=== PATIENT | male | born 1995 | race Caucasian/White ===

== ENCOUNTER 2016-07-19 19:38 | Emergency (ER) | payer BC ==
[~2016-07-19] VITALS: Ht 182.9 cm; Wt 74.6 kg
[~2016-07-19 19:38] MED LIST: ALBUAER2 INH; KFLUNK; OXYC-57 PO; SNGCH5 PO
[2016-07-19 19:47] VITALS: TEMP 36.9; Ht 182.9 cm; Wt 74.6 kg
[2016-07-19] MEDS ORDERED: FLVHFA110 INH (19:56)
[2016-07-19] MEDS ORDERED: PRVHFAIN INH (19:56)
[2016-07-19 20:36] LABS: BASO % 0.3 %; BASO ABS # 0.03 K/uL (0-0.2); COMPLETE YES; EOS % 1.7 %; HEMATOCRIT 38.9 % (42-52); IG% 0.1 %; LYMPH % 27.7 %; LYMPH ABS # 2.57 K/uL (1.2-3.4); MEAN CELL VOLUME 82.4 fL (80-100); MEAN CORPUSCULAR HEMOGLOBIN 29.7 pg (25-34); MEAN PLATELET VOLUME 9.4 fL (7.4-10.4); MONO % 10.1 %; NEUT % 60.1 %; PLATELET COUNT 368 K/uL (130-400); RED BLOOD COUNT 4.72 M/uL (4.7-6.1); WHITE BLOOD COUNT 9.28 K/uL (4.8-10.8)
[2016-07-19 20:56] LABS: BUN/CREATININE RATIO 18.1 (10-20); CALCIUM 9.4 mg/dl (8.5-10.1); CREATININE 1.2 mg/dl (0.60-1.40); MAGNESIUM 2.1 mg/dl (1.8-2.4); POTASSIUM 3.7 mmol/L (3.5-5.1)
--- NOTE | 2016-07-19 21:22 | DIAGNOSTIC IMAGING REPORT ---
RIGHT LOWER EXTREMITY VENOUS DOPPLER HISTORY: Right leg pain/swelling Right COMPARISON STUDY: Right leg venous Doppler 08/05/2010. FINDINGS: There is normal compressibility, flow, and augmentation within the right lower extremity deep venous system. Enlarged right inguinal lymph node measuring 4.0 x 3.2 x 0.9 cm. This contains a normal fatty hilum but a slightly thickened cortex. IMPRESSION: No DVT within the right lower extremity. Enlarged right inguinal lymph node. Electronically signed by: Kash Dewitt M.D. 07/19/2016 9:20 PM Dictated Date/Time: 07/19/2016 9:19 PM
--- NOTE | 2016-07-19 21:32 | DIAGNOSTIC IMAGING REPORT ---
RIGHT TIBIA/FIBULA 2 VIEWS ROUTINE CLINICAL HISTORY: pain - h/o tibial osteotomy Right. Right lower leg pain. COMPARISON STUDY: Right lower leg 08/05/2010. FINDINGS: Old, healed fractures within the proximal shaft of the right tibia and mid shaft of the right fibula consistent with prior osteotomies. Mild skin thickening and soft tissue edema within the anterior and lateral aspect of the proximal right lower leg. No underlying bony destruction to suggest osteomyelitis. No acute fracture or dislocation. IMPRESSION: Mild skin thickening and soft tissue edema within the proximal right lower leg. No underlying bony abnormality to suggest osteomyelitis. Old postoperative changes as described above. Electronically signed by: Kash Dewitt M.D. 07/19/2016 9:30 PM Dictated Date/Time: 07/19/2016 9:28 PM
[2016-07-19 22:27] LABS: URINE APPEARANCE CLEAR (CLEAR); URINE BILIRUBIN NEG (NEG); URINE COLOR YELLOW; URINE NITRITE NEG (NEG); URINE PH 7.5 (4.5-7.5); URINE SPECIFIC GRAVITY 1.023 (1.000-1.030); UROBILINOGEN NEG (NEG); ZZUR CULT IF INDIC CLEAN CATCH NO
[2016-07-19 22:32] LABS: MANUAL MICROSCOPIC REQUIRED? NO; REVIEW REQ? NO
--- NOTE | 2016-07-19 22:40 | EMERGENCY ROOM VISIT NOTE ---
History First contact with patient: 19:50 Chief Complaint: KNEEPAIN Stated Complaint: SWOLLEN R KNEE History of Present Illness The patient is a 20 year old male who presents to the Emergency Department by private vehicle for evaluation of pain and swelling to the RIGHT lower extremity. The patient reports a history of tibial osteotomy performed to the affected extremity in 2010. This was performed at [facility]. He 's had no complications were issue since. He reports that over the past several days he has developed pain and swelling to the muscles below the knee of the RIGHT lower extremity. He reports that the swelling has worsened over the past few days. He reports increasing swelling to the muscles after his shift is over. His swelling does resolve after elevation of the leg. He denies any numbness or tingling into the distal extremity. He reports no decreased range of motion of the affected area. The patient has tried nothing [id number] for his symptoms. He rates his current discomfort as a 6/10. He does not utilize any blood thinners. There is been no trauma to the area. 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 He reports a history of blood clots or bleeding disorders. There is been no recent long distance travel. He denies any smoking history. Review of Systems A complete 10-point Review of Systems was discussed with the patient, with pertinent positives and negatives listed in the History of Present Illness. All remaining Review of Systems questions can be considered negative unless otherwise specified. Social History Smoking Status: Never Smoker Smokeless Tobacco Use: No Drug Use: none Housing Status: lives with family Occupation Status: employed Current/Historical Medications Scheduled Fluticasone Propionate (Flovent Hfa), 2 PUFFS INH BID Scheduled PRN Albuterol (Ventolin Hfa), 2 PUFFS INH Q4H PRN for Asthma Symptoms Allergies Uncoded Allergies: GRASS, DOGS, CATS (Allergy, Severe, HIVES, ASTHMA, 10/26/08) CHICKEN,TURKEY (Allergy, Unknown, RESP, 03/16/05) PEANUTS, EGGS (Allergy, Unknown, 05/27/02) Physical Exam Vital Signs Date Time Temp Pulse Resp B/P Pulse Ox O2 Delivery O2 Flow Rate FiO2 07/19/16 22:45 62 16 124/52 98 07/19/16 20:25 84 16 101/44 98 Room Air 07/19/16 19:47 36.9 85 18 149/84 100 Room Air Pain Rating (0-10): 6 Physical Exam VITAL SIGNS - Vital signs and nursing notes were reviewed. GENERAL - 20-year-old male appearing his stated age and in noticeable discomfort throughout the exam. MUSCULOSKELETAL - swelling noted to the anterior and medial compartments of the RIGHT calf. Compartments are soft and malleable. Mild tenderness to palpation. No palpable cords. No erythema or warmth to touch. Full range of motion of the distal extremity including plantar flexion and dorsiflexion. He is able to point his great toe. He has +5/5 strength bilaterally of the lower extremities. NEUROLOGIC/VASCULAR - Neurovascularly intact distally with +3/5 dorsalis pedis pulses palpated bilaterally. Normal sensation to light and sharp touch appreciated distally. Medical Decision & Procedures ER Provider Diagnostic Interpretation: Radiological imaging and reports were reviewed by myself. Radiologist's Interpretation as follows: RIGHT LOWER EXTREMITY VENOUS DOPPLER HISTORY: Right leg pain/swelling Right COMPARISON STUDY: Right leg venous Doppler 08/05/2010. FINDINGS: There is normal compressibility, flow, and augmentation within the right lower extremity deep venous system. Enlarged right inguinal lymph node measuring 4.0 x 3.2 x 0.9 cm. This contains a normal fatty hilum but a slightly thickened cortex. IMPRESSION: No DVT within the right lower extremity. Enlarged right inguinal lymph node. RIGHT TIBIA/FIBULA 2 VIEWS ROUTINE CLINICAL HISTORY: pain - h/o tibial osteotomy Right. Right lower leg pain. COMPARISON STUDY: Right lower leg 08/05/2010. FINDINGS: Old, healed fractures within the proximal shaft of the right tibia and mid shaft of the right fibula consistent with prior osteotomies. Mild skin thickening and soft tissue edema within the anterior and lateral aspect of the proximal right lower leg. No underlying bony destruction to suggest osteomyelitis. No acute fracture or dislocation. IMPRESSION: Mild skin thickening and soft tissue edema within the proximal right lower leg. No underlying bony abnormality to suggest osteomyelitis. Old postoperative changes as described above. Laboratory Results 07/19/16 20:25 Red Blood Count 4.72, Mean Corpuscular Volume 82.4, Mean Corpuscular Hemoglobin 29.7, Mean Corpuscular Hemoglobin Concent 36.0, Mean Platelet Volume 9.4, Neutrophils (%) (Auto) 60.1, Lymphocytes (%) (Auto) 27.7, Monocytes (%) (Auto) 10.1, Eosinophils (%) (Auto) 1.7, Basophils (%) (Auto) 0.3, Neutrophils # (Auto ) 5.57, Lymphocytes # (Auto) 2.57, Monocytes # (Auto) 0.94, Eosinophils # (Auto ) 0.16, Basophils # (Auto) 0.03 07/19/16 20:25 Test 07/19/16 20:25 07/19/16 22:10 White Blood Count 9.28 K/uL (4.8-10.8) Red Blood Count 4.72 M/uL (4.7-6.1) Hemoglobin 14.0 g/dL (14.0-18.0) Hematocrit 38.9 % (42-52) Mean Corpuscular Volume 82.4 fL (80-100) Mean Corpuscular Hemoglobin 29.7 pg (25-34) Mean Corpuscular Hemoglobin Concent 36.0 g/dl (32-36) Platelet Count 368 K/uL (130-400) Mean Platelet Volume 9.4 fL (7.4-10.4) Neutrophils (%) (Auto) 60.1 % Lymphocytes (%) (Auto) 27.7 % Monocytes (%) (Auto) 10.1 % Eosinophils (%) (Auto) 1.7 % Basophils (%) (Auto) 0.3 % Neutrophils # (Auto) 5.57 K/uL (1.4-6.5) Lymphocytes # (Auto) 2.57 K/uL (1.2-3.4) Monocytes # (Auto) 0.94 K/uL (0.11-0.59) Eosinophils # (Auto) 0.16 K/uL (0-0.5) Basophils # (Auto) 0.03 K/uL (0-0.2) RDW Standard Deviation 40.8 fL (36.4-46.3) RDW Coefficient of Variation 13.4 % (11.5-14.5) Immature Granulocyte % (Auto) 0.1 % Immature Granulocyte # (Auto) 0.01 K/uL (0.00-0.02) Anion Gap 8.0 mmol/L (3-11) Est Creatinine Clear Calc Drug Dose 101.9 ml/min Estimated GFR () 98.9 Estimated GFR (Non- 85.3 BUN/Creatinine Ratio 18.1 (10-20) Calcium Level 9.4 mg/dl (8.5-10.1) Magnesium Level 2.1 mg/dl (1.8-2.4) Total Bilirubin 0.7 mg/dl (0.2-1) Aspartate Amino Transf (AST/SGOT) 24 U/L (15-37) Alanine Aminotransferase (ALT/SGPT) 27 U/L (12-78) Alkaline Phosphatase 83 U/L (45-117) Total Creatine Kinase 482 U/L (39-308) Total Protein 8.5 gm/dl (6.4-8.2) Albumin 4.2 gm/dl (3.4-5.0) Globulin 4.3 gm/dl (2.5-4.0) Albumin/Globulin Ratio 1.0 (0.9-2) Urine Color YELLOW Urine Appearance CLEAR (CLEAR) Urine pH 7.5 (4.5-7.5) Urine Specific [place] 1.023 (1.000-1.030) Urine Protein NEG (NEG) Urine Glucose (UA) NEG (NEG) Urine Ketones NEG (NEG) Urine Occult Blood NEG (NEG) Urine Nitrite NEG (NEG) Urine Bilirubin NEG (NEG) Urine Urobilinogen NEG (NEG) Urine Leukocyte Esterase NEG (NEG) ED Course Patient was seen and evaluated by myself. Labs were drawn, saline lock in place. Patient declines a think for pain. Ultrasound of the affected extremity and x-ray of the tib-fib were obtained. Imaging results above. Laboratory results demonstrate no acute leukocytosis, worrisome anemia, or bandemia. The patient has no significant electrolyte abnormalities. The patient's CPK was mildly elevated at 482. Urinalysis is unremarkable. Case was reviewed with my attending physician who agrees with diagnostic approach and treatment plan. I did discuss the case with Dr. Bagley of orthopedic surgery. He does not feel any intervention is necessary unless the patient were to become worse and we symptomatic. This information was relayed to the patient who acknowledges understanding. He has follow-up with orthopedic surgery in [facility]. The patient was educated on worrisome symptoms for return visit to the emergency department. He declines crutches for home. Patient discharged home in good condition. Medical Decision Given the patient's presentation and exam findings, I did elect to perform the above-mentioned workup. The patient presents with pain and swelling to the compartments of the RIGHT lower extremity. He has full range of motion of the affected extremity, however. He has no neurological deficits. His CPK is only minimally elevated. X-ray and ultrasounds were otherwise unremarkable. The patient does have a history of surgery to the affected extremity. He does admit that he rarely uses this extremity for bending and kneeling. He is likely experiencing an exercise-induced compartment swelling. He has no exam findings concerning for acute compartment syndrome at this point, however. In consultation with orthopedics, they do not feel that any intervention is necessary at this point. The patient declines crutches to help with weightbearing in the outpatient setting. He'll follow-up with his orthopedic surgeon from today's visit. He will return for any changing or worsening symptoms. Patient discharged home in good condition. In the evaluation and treatment of this patient, the following differential diagnoses were considered: Compartment syndrome, DVT, cellulitis, fracture, stress injury, amongst others. Impression Primary Impression: Leg pain Additional Impression: exercise induced compartment swelling of RIGHT Lower Extremity Departure Information Dispostion Home / Self-Care Condition GOOD Referrals Sheila Draper D.O. (PCP) Rylan Bagley M.D. Patient Instructions ED Compartment Syndrome At Risk For, My [facility] Additional Instructions You've been seen in the emergency department today for exercise-induced swelling of the compartments of the RIGHT lower extremity. Ice the area and elevate for comfort. For pain control, you can use the following [id number] medicines (if >12 yo): - Regular strength (325mg/tab) Tylenol (acetaminophen) 2 tabs every 4-6 hours as needed. Do not exceed 12 tablets in a 24 hour period. Avoid taking more than 4 grams (4000 mg) of Tylenol per day. This includes any other sources of acetaminophen you may take on a regular basis. - Regular strength (200 mg/tab) Advil (ibuprofen) 1-2 tabs every 4-6 hours as needed. Do not exceed a dose of 3200 mg per day. Follow-up with orthopedic surgery from today's visit. Return for any changing or worsening symptoms. Problem Qualifiers Primary Impression: Leg pain Laterality: right Qualified Codes: M79.604 - Pain in right leg
[2016-07-19 22:45] VITALS: BP 124/52; PULSE 62; O2SAT 98
== END 2016-07-19 22:46 | disposition home or self-care (01) ==
LOC: C.EDB 19:40 → C.EDD 22:46
DX: M79.604 Pain in right leg (principal); M79.A21 Nontraumatic compartment syndrome of right lower extremity